=== PATIENT | female | born 1975 | race Caucasian/White ===

== ENCOUNTER → 2016-11-27 14:33 | Outpatient (CLI) | payer OTHER ==
[2012-04-27 12:07] VITALS: BMI 20.1
== END | disposition home or self-care (01) ==
LOC: D.MRI 14:00
DX: M54.2 Cervicalgia (principal)

== ENCOUNTER → 2017-02-28 15:04 | Outpatient (CLI) | payer OTHER ==
[2012-04-27 12:07] VITALS: BMI 20.1
== END | disposition home or self-care (01) ==
LOC: D.MRI 13:30
DX: M25.562 Pain in left knee (principal)

== ENCOUNTER → 2017-08-04 12:51 | Outpatient (CLI) | payer OTHER | END | disposition home or self-care (01) | LOC: D.MRI 12:51 | DX: M25.562 Pain in left knee (principal); M25.561 Pain in right knee ==